=== PATIENT | female | born 1985 | race Caucasian/White ===

== ENCOUNTER 2018-03-19 09:31 | Observation (INO) ==
[2018-03-19] MEDS ORDERED: ASPIRIN 325 MG TABLET PO STA (10:00)
[2018-03-19 10:12] LABS: Basophils # 0.1 10*3/uL (0.0-0.2); Basophils % 1.3 % (0.0-0.8); Eosinophils # 0.1 10*3/uL (0.0-0.87); Eosinophils % 1.9 % (0.00-10.9); Hematocrit 42.2 VOL% (35.7-47.0); Hemoglobin 14.2 GM/DL (12.0-16.0); Immature Granulocytes % 0.7 %; Immature Granulocytes Absolute 0.05 #; Lymphocytes # 2.8 10*3/uL (1.4-4.0); Lymphocytes % 38.8 % (21.3-54.2); Mean Corpuscular HGB Conc 33.6 GM/DL (32-36); Mean Corpuscular Hemoglobin 32 PG (27-34); Mean Corpuscular Volume 94.6 FL (87-102); Mean Platelet Volume 9.1 FL (9.6-12.0); Monocytes # 0.5 10*3/uL (0.11-0.8); Monocytes % 7.4 % (1.7-12.7); Neutrophils # 3.6 10*3/uL (1.4-7.4); Neutrophils % 49.9 % (38.7-73.9); Platelet Count 343 T/CUMM (130-400); Red Blood Count 4.46 MC/CUMM (3.8-5.5); White Blood Count 7.2 T/CUMM (4-12)
[2018-03-19] MEDS: NITROGLYCERIN SL 0.4 MG TABLET SL PRN ×3 (10:20→10:35)
[2018-03-19 10:26] LABS: Albumin 3.7 G/DL (3.4-5.0); Bilirubin,Total 0.5 MG/DL (0.2-1.0); Calcium 8.4 MG/DL (8.5-10.1); Osmolality,Calculated 276.4 MOS/KG (273-304); Potassium 4.1 MMOL/L (3.5-5.1); Total Protein 7.6 G/DL (6.4-8.3)
[2018-03-19] MEDS ORDERED: LORazepam 1 MG TABLET ONE (10:32)
[2018-03-19] MEDS ORDERED: LORazepam 1 MG TABLET PO STA (10:32)
[2018-03-19] MEDS ORDERED: ONDANSETRON 4 MG/2 ML VIAL IV PRN (11:41)
[2018-03-19] MEDS ORDERED: CYCLOBENZAPRINE 10 MG TABLET PO PRN (14:30)
[2018-03-19] MEDS ORDERED: MORPHINE 4 MG/1 ML VIAL IM PRN (14:32)
[2018-03-19] MEDS ORDERED: traZODone 50 MG TABLET PO PRN (14:40)
[2018-03-19] MEDS: LORazepam 0.5 MG TABLET PO PRN ×2 (16:32→21:25)
[2018-03-19] MEDS: DOCUSATE SODIUM 100 MG CAPSULE PO SCH (21:21)
[2018-03-19] MEDS: IBUPROFEN 800 MG TABLET PO PRN (21:25)
[2018-03-20] MEDS: IBUPROFEN 800 MG TABLET PO PRN (04:22)
[2018-03-20] MEDS ORDERED: ALUM/MAG/SIMETH/LIDO VISC 1:1 30 ML BOTTLE PO ONE (08:11)
[2018-03-20] MEDS: KETOROLAC 30 MG/1 ML VIAL IV SCH ×3 (10:58→21:13)
[2018-03-20] MEDS: FUROSEMIDE 40 MG TABLET PO SCH (13:14)
[2018-03-20] MEDS: ESCITALOPRAM 10 MG TABLET PO SCH (13:14)
[2018-03-20] MEDS: GABAPENTIN 300 MG CAPSULE PO SCH (13:14)
[2018-03-20] MEDS: PANTOPRAZOLE 40 MG TABLET PO SCH (13:14)
[2018-03-20] MEDS: DOCUSATE SODIUM 100 MG CAPSULE PO SCH ×2 (13:15→22:45)
[2018-03-20] MEDS: LORazepam 0.5 MG TABLET PO PRN ×2 (13:30→21:13)
[2018-03-20] MEDS: ACETAMINOPHEN 325 MG TABLET PO PRN (17:02)
[2018-03-21 05:14] LABS: Basophils # 0.1 10*3/uL (0.0-0.2); Basophils % 0.8 % (0.0-0.8); Eosinophils # 0.2 10*3/uL (0.0-0.87); Eosinophils % 2.4 % (0.00-10.9); Hemoglobin 13.4 GM/DL (12.0-16.0); Immature Granulocytes % 0.4 %; Immature Granulocytes Absolute 0.03 #; Lymphocytes # 3.1 10*3/uL (1.4-4.0); Lymphocytes % 43.4 % (21.3-54.2); Mean Corpuscular HGB Conc 34.4 GM/DL (32-36); Mean Corpuscular Hemoglobin 32 PG (27-34); Mean Platelet Volume 9.2 FL (9.6-12.0); Monocytes # 0.6 10*3/uL (0.11-0.8); Monocytes % 7.9 % (1.7-12.7); Neutrophils # 3.3 10*3/uL (1.4-7.4); Neutrophils % 45.1 % (38.7-73.9); Platelet Count 320 T/CUMM (130-400); Red Blood Count 4.24 MC/CUMM (3.8-5.5); Red Cell Distribution Width 11.9 % (9.3-17.3); White Blood Count 7.2 T/CUMM (4-12)
[2018-03-21 05:44] LABS: Calcium 8.3 MG/DL (8.5-10.1); Osmolality,Calculated 273.7 MOS/KG (273-304); Potassium 4.2 MMOL/L (3.5-5.1)
[2018-03-21] MEDS: ACETAMINOPHEN 325 MG TABLET PO PRN (06:48)
[2018-03-21] MEDS: KETOROLAC 30 MG/1 ML VIAL IV SCH ×2 (06:50→08:20)
[2018-03-21] MEDS: ESCITALOPRAM 10 MG TABLET PO SCH (08:21)
[2018-03-21] MEDS: LORazepam 0.5 MG TABLET PO PRN (08:21)
[2018-03-21] MEDS: FUROSEMIDE 40 MG TABLET PO SCH (08:21)
[2018-03-21] MEDS: PANTOPRAZOLE 40 MG TABLET PO SCH (08:21)
[2018-03-21] MEDS: GABAPENTIN 300 MG CAPSULE PO SCH (08:21)
[2018-03-21] MEDS: DOCUSATE SODIUM 100 MG CAPSULE PO SCH (08:22)
[2018-03-21 11:27] VITALS: BP 131/60
== END 2018-03-21 12:28 | disposition home or self-care (01) ==
LOC: N.ED 09:31 → N.EDINP 09:31 → N.2W 13:23 → N.TELEN 16:37
PROVIDERS: ADMIT Family Medicine; ATTEND Family Medicine